=== PATIENT | female | born 1970 | race Two or more races ===

== ENCOUNTER 2016-09-20 07:10 | Emergency (ER) | payer MEDICAID ==
[~2016-09-20] VITALS: Ht 170.2 cm; Wt 73.5 kg
[~2016-09-20 07:10] MED LIST: IBUPROFEN600 MG ORAL; KENALOG 0.1% CR15 GM APPLIC; NKM; PREDNISONE50 MG ORAL
[2016-09-20 07:25] VITALS: BP 120/80
[2016-09-20] MEDS ORDERED: Pseudoephedrine 30mg tab ORAL ONE (07:45)
[2016-09-20] MEDS ORDERED: Ciprofloxacin 500mg tab ORAL ONE (07:45)
--- NOTE | 2016-09-20 07:49 | Emergency Room Report ---
History of Present Illness General Chief Complaint: Earache Source: Patient Present Illness HPI The patient presents with a right earache that's been well for 3 weeks. She had 10 days of antibiotics that she was taking 4 times a day and also ear drops. She feels like there is fluid there is still 8/10 pain. There is slight decrease in her hearing. She denies any fevers or chills at this time. No sore throat. Not . No myalgias/arthralgias, chest pain, dyspnea. Allergies: Coded Allergies: No Known Allergies (Unverified , 01/04/16) Patient History Past Medical History: see triage record Social History: Denies: smoking Social History Narrative with son Last Menstrual Period: 1-15 Now: No Reviewed Nursing Documentation: PMH: Agreed, PSxH: Agreed Nursing Documentation-PMH Past Medical History: No Stated History Review of Systems All Other Systems: negative except mentioned in HPI Physical Exam Vital Signs Date Time Temp Pulse Resp B/P Pulse Ox O2 Delivery O2 Flow Rate FiO2 09/20/16 07:19 98.1 70 18 120/80 98 Room Air General Appearance: well appearing, no apparent distress Head: normocephalic, atraumatic ENT: normal pharynx, normal voice, other - R TM with fluid, L normal, no pinna tenderness Neck: full range of motion, supple Respiratory: no respiratory distress, speaking full sentences Cardiovascular #1: regular rate, rhythm Cardiovascular #2: 2+ radial (L) Musculoskeletal: digits/nails normal, gait/station normal, normal range of motion Neurologic: alert, normal gait, grossly normal Psychiatric: mood/affect normal Skin: no rash Medical Decision Making Diagnostic Impression: Primary Impression: Otitis media ER Course Patient presents with 3 weeks of R ear pain post antibiotics. Exam with fluid and evidence of otitis media. Other considerations - serous otitis. No evidence of otitis externa. Antibiotics and decongestants indicated. Patient stable for outpatient observation and treatment Last Vital Signs Date Time Temp Pulse Resp B/P Pulse Ox O2 Delivery O2 Flow Rate FiO2 09/20/16 08:10 98.1 70 18 120/80 98 Room Air Status: improved Disposition: HOME, SELF-CARE Condition: Improved Scripts Pseudoephedrine Hcl* (SUDAFED*) 30 Mg Tablet 30 MG PO Q6H Y for ear congestion, #16 TAB Prov: Aj Wolff M.D. 09/20/16 Chlorpheniramine Maleate (CHLORPHENIRAMINE MALEATE) 4 Mg Tablet 4 MG ORAL Q6HR Y for ear congestion, #16 TAB 0 Refills Prov: Aj Wolff M.D. 09/20/16 Ibuprofen* (MOTRIN*) 600 Mg Tablet 600 MG ORAL Q8H Y for For Pain, #16 TAB 0 Refills Prov: Aj Wolff M.D. 09/20/16 Ciprofloxacin* (CIPRO*) 500 Mg Tablet 500 MG PO BID, #14 TAB Prov: Aj Wolff M.D. 09/20/16 Aj Wolff M.D. Sep 20, 2016 07:49
[2016-09-20] MEDS ORDERED: IBUPROFEN600 MG ORAL (07:54)
[2016-09-20] MEDS ORDERED: PSEUDOEPHEDRINE30 MG PO (07:54)
[2016-09-20] MEDS ORDERED: CHLORPHENIRAMINE4 MG ORAL (07:54)
[2016-09-20] MEDS ORDERED: CIPRO500 MG PO (07:54)
[2016-09-20 08:10] VITALS: BP 120/80
== END 2016-09-20 08:10 | disposition home or self-care (01) ==
LOC: EMR 07:49
DX: H66.91 Otitis media, unspecified, right ear (principal)
CPT/HCPCS: 99284

== ENCOUNTER 2019-05-06 15:57 | Emergency (ER) | payer MEDICAID ==
[~2019-05-06] VITALS: Ht 167.6 cm; Wt 74.8 kg
[~2019-05-06 15:57] MED LIST changes: +CHLORPHENIRAMINE4 MG ORAL; +CIPRO500 MG PO; +PSEUDOEPHEDRINE30 MG PO
--- NOTE | 2019-05-06 16:15 | NUR ---
ED Nurse Note: pt walked in to Ed with son due to RUQ abdomen pain for 3-4 days without n/v/d. no fever or chills reported. AAO x4. respirations even and non-labored noted. skin warm to touch. no open wound noted. denies any new drug or food intake. will wait for the further order.
[2019-05-06] MEDS ORDERED: Ketorolac 30mg Inj IV ONE (16:30)
--- NOTE | 2019-05-06 16:35 | NUR ---
ED Nurse Note: US tech at the bed side.
--- NOTE | 2019-05-06 16:45 | Emergency Room Report ---
History of Present Illness General Chief Complaint: Abdominal Pain Source: Patient Present Illness HPI 48 YO Female presents with complaint of 7 out of 10 severity right upper quadrant pain x3 days. Patient reports initially her pain is been intermittent however it began to be constant approximately 2 to 3 hours ago. Patient reports eating made her symptoms worse. Patient denies nausea vomiting, fevers , chills. Patient denies significant past medical history other than history of fibroids. Patient also has noted that she has increased thirst. She denies constipation or diarrhea. Patient denies blood in the stool or black tarry stools. Patient denies any other aggravating or relieving factors. Patient does report abdominal tenderness. She denies . Allergies: Coded Allergies: No Known Allergies (Unverified , 01/04/16) Patient History Past Medical History: see triage record Past Surgical History: appy Pertinent Family History: none Last Menstrual Period: 04/22/2019 Now: No Immunizations: UTD Reviewed Nursing Documentation: PMH: Agreed; PSxH: Agreed Nursing Documentation-PMH Past Medical History: No History, Except For Hx Cardiac Problems: No - appendectomy Hx Hypertension: No Hx Pacemaker: No Hx Asthma: No Hx COPD: No Hx Diabetes: No Hx Cancer: No Hx Gastrointestinal Problems: No Hx Dialysis: No History Of Psychiatric Problem: No Hx Neurological Problems: No Hx Cerebrovascular Accident: No Hx Seizures: No Review of Systems All Other Systems: negative except mentioned in HPI Physical Exam Vital Signs Date Time Temp Pulse Resp B/P (MAP) Pulse Ox O2 Delivery O2 Flow Rate FiO2 05/06/19 16:07 98.8 92 16 135/83 (100) 98 Room Air Sp02 EP Interpretation: reviewed, normal General Appearance: no apparent distress, alert, GCS 15, non-toxic Head: normocephalic, atraumatic Eyes: bilateral eye normal inspection, bilateral eye PERRL ENT: hearing grossly normal, normal voice Neck: full range of motion Respiratory: chest non-tender, lungs clear, normal breath sounds, speaking full sentences Cardiovascular #1: regular rate, rhythm Gastrointestinal: normal bowel sounds, soft, tenderness - RUQ TTP, no murphys sign, no macburny's tenderness. Rectal: deferred Genitourinary: normal inspection, no CVA tenderness Musculoskeletal: back normal, gait/station normal, normal range of motion, non- tender Neurologic: alert, oriented x3, responsive, motor strength/tone normal, sensory intact, normal gait, speech normal, grossly normal Psychiatric: judgement/insight normal Skin: no rash Lymphatic: no adenopathy Medical Decision Making PA Attestation Dr. Schmidt is my supervising Physician whom patient management has been discussed with. Diagnostic Impression: Primary Impression: Abdominal pain Qualified Codes: R10.11 - Right upper quadrant pain ER Course 48 YO Female presents with complaint of 7 out of 10 severity right upper quadrant pain x3 days. Patient reports initially her pain is been intermittent however it began to be constant approximately 2 to 3 hours ago. Patient reports eating made her symptoms worse. Patient denies nausea vomiting, fevers , chills. Patient denies significant past medical history other than history of fibroids. Patient also has noted that she has increased thirst. She denies constipation or diarrhea. Patient denies blood in the stool or black tarry stools. Patient denies any other aggravating or relieving factors. Patient does report abdominal tenderness. She denies . Ddx considered but are not limited to Diverticulitis, acute appendicitis, diarrhea,UC, PUD, GE, pancreatitis, gallstone, Gallbladder etiology. Vital signs: are WNL, pt. is afebrile H&PE are most consistent with right upper quadrant abdominal pain will rule out gallbladder etiology and check urine. No physical exam evidence to suggest acute abdomen. Patient is nontoxic in appearance and in no acute distress. ORDERS: -CBC: WNL -CMP: WNL - lipase: WNL -UA: WNL -Urine Hcg: Negative Abdominal US Complete: "Fatty liver, otherwise no acute findings. " Per official radiology report- Please see report for specific details. ED INTERVENTIONS: -- -Toradol IV -Pepcid PO -Viscous Lidocaine PO - Mylanta PO -I do not identify an emergent condition at this time. With current presentation , pt. is stable for close outpatient follow up and conservative treatment. D/ w pt. to return promptly to ED with worsening or new symptoms.- Pt. verbalizes' understanding and agreement with proposed treatment plan. DISCHARGE: At this time pt. is stable for d/c to home. Will provide printed patient care instructions, and any necessary prescriptions. Care plan and follow up instructions have been discussed with the patient prior to discharge. Labs Test 05/06/19 16:15 White Blood Count 10.8 K/UL (4.8-10.8) Red Blood Count 4.73 M/UL (4.20-5.40) Hemoglobin 13.5 G/DL (12.0-16.0) Hematocrit 38.8 % (37.0-47.0) Mean Corpuscular Volume 82 FL (80-99) Mean Corpuscular Hemoglobin 28.5 PG (27.0-31.0) Mean Corpuscular Hemoglobin Concent 34.7 G/DL (32.0-36.0) Red Cell Distribution Width 12.1 % (11.6-14.8) Platelet Count 194 K/UL (150-450) Mean Platelet Volume 8.1 FL (6.5-10.1) Neutrophils (%) (Auto) 58.9 % (45.0-75.0) Lymphocytes (%) (Auto) 31.5 % (20.0-45.0) Monocytes (%) (Auto) 6.4 % (1.0-10.0) Eosinophils (%) (Auto) 2.1 % (0.0-3.0) Basophils (%) (Auto) 1.2 % (0.0-2.0) Urine Color Pale yellow Urine Appearance Clear Urine pH 5 (4.5-8.0) Urine Specific [place] 1.010 (1.005-1.035) Urine Protein Negative (NEGATIVE) Urine Glucose (UA) Negative (NEGATIVE) Urine Ketones 1+ (NEGATIVE) Urine Blood Negative (NEGATIVE) Urine Nitrite Negative (NEGATIVE) Urine Bilirubin Negative (NEGATIVE) Urine Urobilinogen Normal MG/DL (0.0-1.0) Urine Leukocyte Esterase Negative (NEGATIVE) Urine HCG, Qualitative Negative (NEGATIVE) Sodium Level 138 MMOL/L (136-145) Potassium Level 3.8 MMOL/L (3.5-5.1) Chloride Level 103 MMOL/L (98-107) Carbon Dioxide Level 25 MMOL/L (21-32) Anion Gap 10 mmol/L (5-15) Blood Urea Nitrogen 13 mg/dL (7-18) Creatinine 0.8 MG/DL (0.55-1.30) Estimat Glomerular Filtration Rate > 60 mL/min (>60) Glucose Level 97 MG/DL (74-106) Calcium Level 9.2 MG/DL (8.5-10.1) Total Bilirubin 0.2 MG/DL (0.2-1.0) Aspartate Amino Transf (AST/SGOT) 19 U/L (15-37) Alanine Aminotransferase (ALT/SGPT) 24 U/L (12-78) Alkaline Phosphatase 101 U/L (46-116) Total Protein 7.8 G/DL (6.4-8.2) Albumin 4.1 G/DL (3.4-5.0) Globulin 3.8 g/dL Albumin/Globulin Ratio 1.1 (1.0-2.7) Lipase 196 U/L (73-393) CT/MRI/US Diagnostic Results CT/MRI/US Diagnostic Results : Imaging Test Ordered: Abdominal US Complete Impression "Fatty liver, otherwise no acute findings. " Per official radiology report- Please see report for specific details. Last Vital Signs Date Time Temp Pulse Resp B/P (MAP) Pulse Ox O2 Delivery O2 Flow Rate FiO2 05/06/19 16:07 98.8 92 16 135/83 (100) 98 Room Air Disposition: HOME, SELF-CARE Condition: Serious Scripts Simethicone* (SIMETHICONE*) 80 Mg Tab.chew 80 MG ORAL Q8H PRN for GAS PAIN, #20 TAB 0 Refills Prov: Iris Nelson 05/06/19 Ranitidine Hcl* (ZANTAC*) 150 Mg Tablet 150 MG ORAL TWICE A DAY for 10 Days, #20 TAB Prov: Iris Nelson 05/06/19 Patient Instructions: Abdominal Pain, Adult Additional Instructions: Take medications as directed. Follow up with a Primary Care Provider in 3-5 days, even if your symptoms have resolved. --Please review list of primary care clinics, if you do not already have a primary care provider Return sooner to ED if new symptoms occur, or current symptoms become worse. Do not drink alcohol, drive, or operate heavy machinery while taking [ ] as this may cause drowsiness. - Please note that this Emergency Department Report was dictated using [employer] driver technology software, occasionally this can lead to erroneous entry secondary to interpretation by the dictation equipment. Iris Nelson May 06, 2019 16:44
[2019-05-06 16:53] LABS: APPEARANCE,URINE CLEAR; BILIRUBIN, URINE NEGATIVE (NEGATIVE); COLOR,URINE PALE YELLOW; GLUCOSE, URINE (UA) NEGATIVE (NEGATIVE); KETONES,URINE 1+ (NEGATIVE); LEUKOCYTE ESTERASE ,URINE NEGATIVE (NEGATIVE); NITRITE,URINE NEGATIVE (NEGATIVE); PH,URINE 5 (4.5-8.0); PROTEIN,URINE NEGATIVE (NEGATIVE); UROBILINOGEN,URINE NORMAL MG/DL (0.0-1.0)
[2019-05-06 17:02] LABS: BASOPHILS % (AUTO) 1.2 % (0.0-2.0); EOSINOPHILS % (AUTO) 2.1 % (0.0-3.0); HEMATOCRIT 38.8 % (37.0-47.0); HEMOGLOBIN 13.5 G/DL (12.0-16.0); LYMPHOCYTES % (AUTO) 31.5 % (20.0-45.0); MEAN CORPUSCULAR VOLUME 82 FL (80-99); MONOCYTES % (AUTO) 6.4 % (1.0-10.0); NEUTROPHILS % (AUTO) 58.9 % (45.0-75.0); PLATELET COUNT 194 K/UL (150-450); RED BLOOD COUNT 4.73 M/UL (4.20-5.40); RED CELL DISTRIBUTION WIDTH 12.1 % (11.6-14.8); WHITE BLOOD COUNT 10.8 K/UL (4.8-10.8)
[2019-05-06 17:09] LABS: ANION GAP 10 mmol/L (5-15); BLOOD UREA NITROGEN 13 mg/dL (7-18); CALCIUM 9.2 MG/DL (8.5-10.1); CARBON DIOXIDE 25 MMOL/L (21-32); CHLORIDE 103 MMOL/L (98-107); CREATININE 0.8 MG/DL (0.55-1.30); POTASSIUM 3.8 MMOL/L (3.5-5.1); SODIUM 138 MMOL/L (136-145)
[2019-05-06 17:33] LABS: ALANINE AMINOTRANSFERASE 24 U/L (12-78); ASPARTATE AMINO TRANSFERASE 19 U/L (15-37); BILIRUBIN,TOTAL 0.2 MG/DL (0.2-1.0)
[2019-05-06 17:34] LABS: ALBUMIN 4.1 G/DL (3.4-5.0); ALBUMIN/GLOBULIN RATIO 1.1 (1.0-2.7); ALKALINE PHOSPHATASE 101 U/L (46-116)
[2019-05-06] MEDS ORDERED: Lidocaine 2% Visc 15ml soln ORAL ONE (18:15)
[2019-05-06] MEDS ORDERED: Mylanta II UD 30ml ORAL ONE (18:15)
[2019-05-06] MEDS ORDERED: SIMETHICONE80 MG ORAL (18:26)
[2019-05-06] MEDS ORDERED: ZANTAC150 MG ORAL (18:26)
[2019-05-06 18:34] VITALS: BP 127/71
--- NOTE | 2019-05-06 18:35 | NUR ---
ER DISCHARGE NOTE: Patient is cleared to be discharged per ERMD, pt is aox4, on room air, with stable vital signs. pt was given dc and prescription instructions, pt was able to verbalize understanding, pt id band and iv site removed without complications. pt is able to ambulate with steady gait. pt took all belongings.
--- NOTE | 2019-05-07 11:31 | Diagnostic Imaging Report ---
Indication: Abdominal pain Technique: Kruse-scale and duplex images of the upper abdomen were obtained Comparison: none Findings: Gallbladder is unremarkable, without stones, wall thickening, nor pericholecystic fluid. Sonographic Pettit's sign is negative. Common bile duct measures 2 mm in diameter. No intrahepatic biliary ductal dilatation. Liver demonstrates diffusely increased echogenicity, consistent with diffuse hepatocellular disease, most likely fatty change. Portal vein and hepatic veins are patent. Pancreas is unremarkable. Spleen is unremarkable. Left kidney measures 11.2 cm in length. Right kidney measures 11.1 cm length. Both kidneys demonstrate normal echogenicity. There is no hydronephrosis. No focal abnormality . Non-aneurysmal abdominal aorta . Impression: Liver demonstrates diffusely increased echogenicity, consistent with diffuse hepatocellular disease, most likely fatty change. Negative for gallstones or dilated bile ducts This agrees with the preliminary interpretation provided overnight by Dr. Johnson
== END 2019-05-06 18:39 | disposition home or self-care (01) ==
LOC: EMR 16:21
DX: R10.11 Right upper quadrant pain (principal); Z90.49 Acquired absence of other specified parts of digestive tract
CPT/HCPCS: 36415; 76700; 80053; 81003; 81025; 83690; 85025; 96374; J1885; Z7502; 99284

== ENCOUNTER 2019-06-13 20:12 | Emergency (ER) | payer MEDICAID ==
[~2019-06-13] VITALS: Ht 167.6 cm; Wt 65.8 kg
[~2019-06-13 20:12] MED LIST changes: +SIMETHICONE80 MG ORAL; +ZANTAC150 MG ORAL
--- NOTE | 2019-06-13 20:38 | NUR ---
ED Nurse Note: Patient presents with complaints of left foot pain x 1 week with pain 5/10 with no account of trauma. Patien treports that it hurts more at night.
--- NOTE | 2019-06-13 21:03 | NUR ---
ED Nurse Note: Patient went down to radiology for xray of the foot.
--- NOTE | 2019-06-13 21:10 | NUR ---
ED Nurse Note: Patient returned from radiology.
--- NOTE | 2019-06-13 21:10 | Emergency Room Report ---
History of Present Illness General Chief Complaint: Lower Extremity Injury Source: Patient Present Illness HPI Patient presents with complaints of discomfort to the top of the foot on the left foot Reports ongoing for the past several days she feels that at nighttime she notices it more denies any obvious trauma that she recalls denies any ankle pain denies any calf pain she feels that at times the pain shoots upward on the front part of her Tibia Denies any calf swelling denies any fevers or chills Allergies: Coded Allergies: No Known Allergies (Unverified , 01/04/16) Patient History Past Medical History: see triage record Last Menstrual Period: 05/30/19 Now: No Reviewed Nursing Documentation: PMH: Agreed; PSxH: Agreed Nursing Documentation-PMH Past Medical History: No Stated History Hx Cardiac Problems: No - appendectomy Hx Hypertension: No Hx Pacemaker: No Hx Asthma: No Hx COPD: No Hx Diabetes: No Hx Cancer: No Hx Gastrointestinal Problems: No Hx Dialysis: No Hx Neurological Problems: No Hx Cerebrovascular Accident: No Hx Seizures: No Review of Systems All Other Systems: negative except mentioned in HPI Physical Exam Vital Signs Date Time Temp Pulse Resp B/P (MAP) Pulse Ox O2 Delivery O2 Flow Rate FiO2 06/13/19 20:23 98.1 80 20 135/80 (98) 100 Room Air Sp02 EP Interpretation: reviewed, normal General Appearance: well appearing, no apparent distress Head: normocephalic, atraumatic Eyes: bilateral eye PERRL, bilateral eye EOMI ENT: normal pharynx Neck: supple Respiratory: lungs clear, no retraction, no accessory muscle use Cardiovascular #1: regular rate, rhythm Musculoskeletal: other - Some discomfort is palpable to the dorsal aspect of the left foot, vascularly intact good pulses, no obvious edema is noted, however patient does have some reproducible discomfort on palpation at the midpoint dorsally Neurologic: alert Skin: no rash Lymphatic: no adenopathy Medical Decision Making Diagnostic Impression: Primary Impression: Foot pain, left ER Course Given the history and exam multiple differentials and consideration including but not limited to tendinitis, occult fracture, cyst Patient's x-ray does not show any obvious acute pathology examination is benign Neurovascularly intact no obvious signs of emergent pathology and patient is stable for initial conservative outpatient trial She will avoid high heels And wear comfortable shoes to see if this improves symptoms and follow-up closely with primary physician Other X-Ray Diagnostic Results Other X-Ray Diagnostic Results : X-Ray ordered: left Foot # of Views/Limited Vs Complete: 3 View Indication: Pain EP Interpretation: Yes Interpretation: no dislocation, no soft tissue swelling, no fractures Impression: No acute disease Electronically Signed by: Charly Chery DO Last Vital Signs Date Time Temp Pulse Resp B/P (MAP) Pulse Ox O2 Delivery O2 Flow Rate FiO2 06/13/19 20:23 98.1 80 20 135/80 (98) 100 Room Air Status: improved Disposition: HOME, SELF-CARE Condition: Improved Scripts Ibuprofen* (MOTRIN*) 600 Mg Tablet 600 MG ORAL Q8H PRN for For Pain, #20 TAB 0 Refills Prov: Charly Chery DO 06/13/19 Additional Instructions: Patient is provided with the discharge instructions notified to follow up with primary doctor in the next 2-3 days otherwise return to the er with any worsening symptoms. Please note that this report is being documented using [employer] technology. This can lead to erroneous entry secondary to incorrect interpretation by the dictating instrument. Charly Chery DO Jun 13, 2019 21:10
[2019-06-13] MEDS ORDERED: IBUPROFEN600 MG ORAL (21:31)
[2019-06-13 21:35] VITALS: BP 135/80
--- NOTE | 2019-06-13 21:35 | NUR ---
ED Nurse Note: Patient cleared for discharge by Er provider. Patient verbalized understanding of discharge instructions, ID band removed. Patient departed with all belongings accompanied by significant other.
--- NOTE | 2019-06-14 10:42 | Diagnostic Imaging Report ---
Indication: Neck pain Technique: XRAY Foot Complete L Comparison: None Findings: Bone mineralization within normal limits. No acute fracture identified. Alignment and joint spaces are maintained. Accessory ossicle noted adjacent to the cuboid. 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 Impression: No evidence of acute fracture or dislocation.
== END 2019-06-13 21:35 | disposition home or self-care (01) ==
LOC: EMR 21:10
DX: M79.672 Pain in left foot (principal); Z90.49 Acquired absence of other specified parts of digestive tract
CPT/HCPCS: 73630; Z7502; 99283

== ENCOUNTER 2019-11-13 12:19 | Emergency (ER) | payer MEDICAID ==
[~2019-11-13] VITALS: Ht 167.6 cm; Wt 72.6 kg
--- NOTE | 2019-11-13 13:08 | NUR ---
ED Nurse Note: Pt walked into ED w/ c/o dizziness for 2 days. Pt states that the room feels as if its spinning. No history of falls. Pt has hx of fribroma. Pt denies cough, congestion, PERLA, nausea and V, injury. Pt is alert and orientedx4, ambulatory.
[2019-11-13 13:10] VITALS: BP 142/88
[2019-11-13] MEDS ORDERED: Meclizine 25mg tab ORAL ONE (13:45)
[2019-11-13 14:17] LABS: EOSINOPHILS % (AUTO) 1.6 % (0.0-3.0); HEMOGLOBIN 14.7 G/DL (12.0-16.0); LYMPHOCYTES % (AUTO) 29.6 % (20.0-45.0); MEAN CORPUSCULAR VOLUME 84 FL (80-99); MONOCYTES % (AUTO) 4.6 % (1.0-10.0); NEUTROPHILS % (AUTO) 63.1 % (45.0-75.0); PLATELET COUNT 218 K/UL (150-450); RED BLOOD COUNT 5.22 M/UL (4.20-5.40); RED CELL DISTRIBUTION WIDTH 12.3 % (11.6-14.8)
[2019-11-13 14:32] LABS: APPEARANCE,URINE CLEAR; BILIRUBIN, URINE NEGATIVE (NEGATIVE); COLOR,URINE PALE YELLOW; GLUCOSE, URINE (UA) NEGATIVE (NEGATIVE); KETONES,URINE NEGATIVE (NEGATIVE); LEUKOCYTE ESTERASE ,URINE NEGATIVE (NEGATIVE); NITRITE,URINE NEGATIVE (NEGATIVE); PH,URINE 5 (4.5-8.0); PROTEIN,URINE NEGATIVE (NEGATIVE); UROBILINOGEN,URINE NORMAL MG/DL (0.0-1.0)
[2019-11-13 14:33] LABS: ANION GAP 10 mmol/L (5-15); BLOOD UREA NITROGEN 11 mg/dL (7-18); CALCIUM 9.9 MG/DL (8.5-10.1); CARBON DIOXIDE 27 MMOL/L (21-32); CHLORIDE 106 MMOL/L (98-107); CREATININE 0.6 MG/DL (0.55-1.30); POTASSIUM 4.1 MMOL/L (3.5-5.1); SODIUM 143 MMOL/L (136-145)
[2019-11-13 14:37] LABS: ALANINE AMINOTRANSFERASE 22 U/L (12-78); ALBUMIN 4.3 G/DL (3.4-5.0); ALKALINE PHOSPHATASE 110 U/L (46-116); ASPARTATE AMINO TRANSFERASE 17 U/L (15-37); BILIRUBIN,TOTAL 0.2 MG/DL (0.2-1.0)
--- NOTE | 2019-11-13 15:16 | Emergency Room Report ---
History of Present Illness General Chief Complaint: Dizziness Source: Patient Present Illness HPI States that for the past 2 days she has had a spinning sensation when she bends over or rolls over in bed. She states she woke up with the symptoms 2 days ago. She denies recent illness. She denies fever or chills. She denies nausea or vomiting. She states she has been fatigued. She states at some point she has had anemia when she was very young. She does have a history of uterine fibroids. She has heavy menses. She denies headache or neck pain. She denies weakness. She denies tingling or numbness. She denies blurry vision. She denies head trauma. She denies neck pain. She has no other complaints. COVID-19 risk:Travel to affect: No Has patient experienced sanabria: No Allergies: Coded Allergies: No Known Allergies (Unverified , 01/04/16) Patient History Past Medical History: none Past Surgical History: appy Social History: Denies: smoking, alcohol use, drug use Reviewed Nursing Documentation: PMH: Agreed; PSxH: Agreed Nursing Documentation-PMH Hx Cardiac Problems: No - appendectomy Hx Hypertension: No Hx Pacemaker: No Hx Asthma: No Hx COPD: No Hx Diabetes: No Hx Cancer: No Hx Gastrointestinal Problems: No Hx Dialysis: No Hx Neurological Problems: No Hx Cerebrovascular Accident: No Hx Seizures: No Review of Systems All Other Systems: negative except mentioned in HPI Physical Exam Vital Signs Date Time Temp Pulse Resp B/P (MAP) Pulse Ox O2 Delivery O2 Flow Rate FiO2 11/13/19 12:33 97.7 72 16 145/86 (105) 98 Room Air 11/13/19 13:10 98 Sp02 EP Interpretation: reviewed, normal General Appearance: no apparent distress, alert, GCS 15, non-toxic Head: normocephalic, atraumatic Eyes: bilateral eye normal inspection, bilateral eye PERRL ENT: hearing grossly normal, normal pharynx, no angioedema, normal voice Neck: full range of motion, supple/symm/no masses Respiratory: chest non-tender, lungs clear, normal breath sounds, no respiratory distress, no retraction, no accessory muscle use, speaking full sentences Cardiovascular #1: regular rate, rhythm, no edema Gastrointestinal: normal bowel sounds, non tender, soft, non-distended, no guarding, no rebound Rectal: deferred Musculoskeletal: back normal, normal range of motion, non-tender Neurologic: alert, motor strength/tone normal, oriented x3, sensory intact, responsive, speech normal Psychiatric: judgement/insight normal, memory normal, mood/affect normal, no suicidal/homicidal ideation Skin: no rash, normal color Medical Decision Making Diagnostic Impression: Primary Impression: Benign positional vertigo ER Course This patient has a physical exam at presentation consistent with benign positional vertigo. Other considerations include labyrinthitis, Mnire's disease, central vertigo. The patient's symptoms are short and episodic and have been positional. There are no central neurologic findings on physical exam which is very reassuring that this is not a posterior circulation stroke. Laboratory workup, EKG are unremarkable. I will treat the patient with meclizine and have the patient follow up closely with the primary care physician. The patient was given return precautions and followup instructions. Laboratory Tests Test 11/13/19 13:45 White Blood Count 9.0 K/UL (4.8-10.8) Red Blood Count 5.22 M/UL (4.20-5.40) Hemoglobin 14.7 G/DL (12.0-16.0) Hematocrit 44.0 % (37.0-47.0) Mean Corpuscular Volume 84 FL (80-99) Mean Corpuscular Hemoglobin 28.1 PG (27.0-31.0) Mean Corpuscular Hemoglobin Concent 33.3 G/DL (32.0-36.0) Red Cell Distribution Width 12.3 % (11.6-14.8) Platelet Count 218 K/UL (150-450) Mean Platelet Volume 9.7 FL (6.5-10.1) Neutrophils (%) (Auto) 63.1 % (45.0-75.0) Lymphocytes (%) (Auto) 29.6 % (20.0-45.0) Monocytes (%) (Auto) 4.6 % (1.0-10.0) Eosinophils (%) (Auto) 1.6 % (0.0-3.0) Basophils (%) (Auto) 1.0 % (0.0-2.0) Urine Color Pale yellow Urine Appearance Clear Urine pH 5 (4.5-8.0) Urine Specific [place] 1.015 (1.005-1.035) Urine Protein Negative (NEGATIVE) Urine Glucose (UA) Negative (NEGATIVE) Urine Ketones Negative (NEGATIVE) Urine Blood Negative (NEGATIVE) Urine Nitrite Negative (NEGATIVE) Urine Bilirubin Negative (NEGATIVE) Urine Urobilinogen Normal MG/DL (0.0-1.0) Urine Leukocyte Esterase Negative (NEGATIVE) Sodium Level 143 MMOL/L (136-145) Potassium Level 4.1 MMOL/L (3.5-5.1) Chloride Level 106 MMOL/L (98-107) Carbon Dioxide Level 27 MMOL/L (21-32) Anion Gap 10 mmol/L (5-15) Blood Urea Nitrogen 11 mg/dL (7-18) Creatinine 0.6 MG/DL (0.55-1.30) Estimated Glomerular Filtration Rate > 60 mL/min (>60) Glucose Level 96 MG/DL (74-106) Calcium Level 9.9 MG/DL (8.5-10.1) Total Bilirubin 0.2 MG/DL (0.2-1.0) Aspartate Amino Transferase (AST) 17 U/L (15-37) Alanine Aminotransferase (ALT) 22 U/L (12-78) Alkaline Phosphatase 110 U/L (46-116) Total Protein 8.6 G/DL (6.4-8.2) H Albumin 4.3 G/DL (3.4-5.0) Globulin 4.3 g/dL Albumin/Globulin Ratio 1.0 (1.0-2.7) EKG Diagnostic Results Rate: normal Rhythm: NSR ST Segments: no acute changes Rhythm Strip Diag. Results EP Interpretation: yes Rate: 60's Rhythm: NSR, no PVC's, no ectopy Last Vital Signs Date Time Temp Pulse Resp B/P (MAP) Pulse Ox O2 Delivery O2 Flow Rate FiO2 11/13/19 13:10 97.7 76 18 142/88 98 Room Air 11/13/19 13:10 98 Status: improved Disposition: HOME, SELF-CARE Patient Instructions: Bee Roque DO Nov 13, 2019 15:15
[2019-11-13] MEDS ORDERED: MECLIZINE HCL25 MG ORAL ×3 (15:32→15:53)
[2019-11-13 16:29] VITALS: BP 136/80
--- NOTE | 2019-11-13 16:29 | NUR ---
ER DISCHARGE NOTE: Patient is cleared to be discharged per ERMD, pt is aox4, on room air, with stable vital signs. pt was given dc and prescription instructions, pt was able to verbalize understanding, pt id band removed. pt is able to ambulate with steady gait. pt took all belongings.
== END 2019-11-13 16:19 | disposition home or self-care (01) ==
LOC: EMR 15:25
DX: H81.10 Benign paroxysmal vertigo, unspecified ear (principal); Z90.89 Acquired absence of other organs
CPT/HCPCS: 36415; 80053; 81003; 85025; 93005; Z7502; 99283